=== PATIENT | male | born 1975 | race Caucasian/White ===

== ENCOUNTER 2024-05-01 12:00 | Emergency (ER) | payer MEDICAID ==
[~2024-05-01] VITALS: Ht 175.3 cm; Wt 113.4 kg
[2024-05-01] MEDS ORDERED: LIDOCAINE 1%-EPI 1:100,000 20 ML VIAL ONE (13:13)
[2024-05-01] MEDS ORDERED: IBUP-1490 PO (13:30)
[2024-05-01] MEDS ORDERED: CEPH500C2 PO (13:30)
[2024-05-01] MEDS ORDERED: SULF1TAB48 PO (13:30)
[2024-05-01] MEDS ORDERED: NAPROXEN 250 MG TABLET ONE (13:37)
[2024-05-01] MEDS ORDERED: CEPHALEXIN MONOHYDRATE 500 MG CAPSULE PO ONE (13:37)
[2024-05-01] MEDS ORDERED: SULFAMETH/TRIMETH 800/160 MG 1 UDTAB TABLET ONE (13:38)
[2024-05-01] MEDS: CEPHALEXIN MONOHYDRATE 500 MG CAPSULE PO ONE (13:42)
[2024-05-01] MEDS: SULFAMETH/TRIMETH 800/160 MG 1 UDTAB TABLET PO ONE (13:42)
[2024-05-01] MEDS: NAPROXEN 250 MG TABLET PO ONE (13:42)
[2024-05-01] MEDS: LIDOCAINE 1%-EPI 1:100,000 20 ML VIAL TP ONE (13:43)
[2024-05-01 13:48] VITALS: BP 155/103; TEMP 98.6; O2SAT 95
== END 2024-05-01 13:47 | disposition home or self-care (01) ==
LOC: ER 12:08
DX: L02.411 Cutaneous abscess of right axilla (principal); I10 Essential (primary) hypertension; E11.9 Type 2 diabetes mellitus without complications
CPT/HCPCS: 99284; 10060; J3490

== ENCOUNTER 2024-06-18 12:39 | Emergency (ER) | payer SELFPAY ==
[~2024-06-18] VITALS: Ht 175.3 cm; Wt 127.0 kg
[~2024-06-18 12:39] MED LIST: CEPH500C2 PO; IBUP-1490 PO; SULF1TAB48 PO
[2024-06-18 13:01] VITALS: BP 159/101; TEMP 98.3; O2SAT 99
[2024-06-18] MEDS ORDERED: CLOT15CR35 TP (13:16)
== END 2024-06-18 13:36 | disposition home or self-care (01) ==
LOC: ER 12:42
DX: N48.1 Balanitis (principal); E11.9 Type 2 diabetes mellitus without complications; I10 Essential (primary) hypertension

== ENCOUNTER 2024-07-05 19:18 | Emergency (ER) | payer MEDICAID ==
[~2024-07-05] VITALS: Ht 180.3 cm; Wt 81.6 kg
[~2024-07-05 19:18] MED LIST changes: +CLOT15CR35 TP
[2024-07-05] MEDS ORDERED: CEPH-570 PO (20:53)
[2024-07-05] MEDS: KETOROLAC TROMETHAMINE INJ 30 MG/ML VIAL IM ONE (20:57)
[2024-07-05 22:18] VITALS: BP 121/78; TEMP 98.3; O2SAT 97
== END 2024-07-05 22:30 | disposition home or self-care (01) ==
LOC: ER 19:20
DX: L03.031 Cellulitis of right toe (principal); M79.674 Pain in right toe(s); E11.9 Type 2 diabetes mellitus without complications; I10 Essential (primary) hypertension; Z86.79 Personal history of other diseases of the circulatory system
CPT/HCPCS: 99283; 96372; J1885

== ENCOUNTER 2024-07-27 17:07 | Emergency (ER) | payer MEDICAID ==
[~2024-07-27] VITALS: Ht 177.8 cm; Wt 131.5 kg
[~2024-07-27 17:07] MED LIST changes: +CEPH-570 PO
[2024-07-27 18:05] VITALS: BP 132/77; TEMP 98.2; O2SAT 98
[2024-07-27] MEDS ORDERED: LIDOCAINE MPF 1%-EPI 1:200,000 30 ML VIAL IJ ONE (18:31)
[2024-07-27] MEDS: LIDOCAINE 1%-EPI 1:100,000 20 ML VIAL TP ONE (18:56)
== END 2024-07-27 19:12 | disposition home or self-care (01) ==
LOC: ER 18:03
DX: L60.0 Ingrowing nail (principal); E11.9 Type 2 diabetes mellitus without complications; I10 Essential (primary) hypertension; Z86.79 Personal history of other diseases of the circulatory system
CPT/HCPCS: 99284; 11730; J3490